=== PATIENT | female | born 1980 | race Caucasian/White ===

== ENCOUNTER 2016-11-02 10:29 | Emergency (ER) | payer BC ==
--- NOTE | 2016-11-02 12:54 | RAD ---
HISTORY: Trauma, injury to right knee COMPARISONS: July 21, 2013 VIEWS: 4, Frontal, lateral, axial, and oblique views of the right knee FINDINGS: BONE DENSITY: Normal. BONES: There is no displaced fracture. JOINTS: There is no arthropathy. There is no appreciable lipohemarthrosis. ALIGNMENT: There is no dislocation. SOFT TISSUES: Unremarkable. OTHER FINDINGS: None. IMPRESSION: NO ACUTE OSSEOUS INJURY. IF SYMPTOMS PERSIST, RECOMMEND REPEAT IMAGING.
[2016-11-02 12:58] VITALS: BP 130/87
--- NOTE | 2016-11-02 14:31 | UC ---
Knee Pain HPI - HPI Summary HPI Summary: 9:45 AM CROSSING PARKING LOT AND SLIPPED, FELL ONTO RIGHT KNEE. HISTORY OF ARTHRITIS IN LEFT KNEE. KNEE FEELS UNSTABLE - History of Current Complaint Chief Complaint: UCLowerExtremity Stated Complaint: RIGHT KNEE PAIN Time Seen by Provider: 11/02/16 12:10 Hx Obtained From: Patient Hx Last Menstrual Period: s/p uterine ablation Onset/Duration: Sudden Onset, Lasting Hours, Still Present Severity Currently: Moderate Pain Intensity: 6 Pain Scale Used: 0-10 Numeric Character: Dull, Aching Aggravating Factor(s): Weight Bearing, Prolonged Standing Alleviating Factor(s): Position Able to Bear Weight: Yes - WITH PAIN - Allergies/Home Medications Allergies/Adverse Reactions: Allergies Allergy/AdvReac Type Severity Reaction Status Date / Time No Known Allergies Allergy Verified 07/21/15 15:49 Home Medications: Home Medications Levothyroxine TAB* [Synthroid TAB*] 150 mcg PO DAILY 11/02/16 [History Confirmed 11/02/16] PMH/Surg Hx/FS Hx/Imm Hx Previously Healthy: Yes Endocrine History Of: Reports: Diabetes, Thyroid Disease Respiratory History Of: Reports: Asthma - Surgical History Surgical History: Yes Surgery Procedure, Year, and Place: 4 D&C's. Uterine Ablation. Lap Band x 2 and Removal. Tubal Ligation - Social History Occupation: Employed Full-time Lives: With Family Alcohol Use: Occasionally Substance Use Type: None Smoking Status (MU): Never Smoked Tobacco - Immunization History Most Recent Influenza Vaccination: Not the 2015/2016 Season Review of Systems Constitutional: Negative Skin: Negative Eyes: Negative ENT: Negative Respiratory: Negative Cardiovascular: Negative Gastrointestinal: Negative Genitourinary: Negative Motor: Negative Musculoskeletal: Arthralgia - RIGHT KNEE, Myalgia - RIGHT KNEE Neurological: Negative Psychological: Negative All Other Systems Reviewed And Are Negative: Yes Physical Exam Triage Information Reviewed: Yes Appearance: Well-Appearing, No Pain Distress, Well-Nourished Vital Signs: Initial Vital Signs Temp 98.1 F 11/02/16 12:22 Pulse 96 11/02/16 12:22 Resp 16 11/02/16 12:22 BP 130/87 11/02/16 12:22 Pulse Ox 99 11/02/16 12:22 Vital Signs Reviewed: Yes Eye Exam: Normal Eyes: Positive: Conjunctiva Clear ENT Exam: Normal ENT: Positive: Normal ENT inspection, Hearing grossly normal, TMs normal Dental Exam: Normal Neck exam: Normal Respiratory Exam: Normal Respiratory: Positive: Chest non-tender, Lungs clear, Normal breath sounds, No respiratory distress Cardiovascular Exam: Normal Cardiovascular: Positive: RRR, No Murmur, Pulses Normal Abdominal Exam: Normal Abdomen Description: Positive: Nontender, No Organomegaly Musculoskeletal: Positive: Strength Intact, ROM Intact, No Edema, Other: - LATERAL PAIN WITH [facility] MURRAYS TEST; LATERAL PAIN, WITH ANTERIOR DRAWER TEST Knee Pain Course/Dx - Differential Dx/Diagnosis Differential Diagnosis/HQI/PQRI: Fracture (Closed), Sprain, Strain Provider Diagnoses: RIGHT KNEE SPRAIN Discharge - Discharge Plan Condition: Stable Disposition: HOME Patient Education Materials: Knee Sprain (ED) Forms: *Work Release Referrals: Kaden Joya MD [Medical Doctor] - Yamilka Delgado NP [Primary Care Provider] - Meeta Marquez MD [Medical Doctor] -
== END 2016-11-02 13:35 | disposition home or self-care (01) ==
LOC: UCCORT 10:29
DX: S83.91XA Sprain of unspecified site of right knee, initial encounter (principal); W01.0XXA Fall on same level from slipping, tripping and stumbling without subsequent striking against object, initial encounter; Y93.01 Activity, walking, marching and hiking; Y92.481 Parking lot as the place of occurrence of the external cause
CPT/HCPCS: 99212; G0463

== ENCOUNTER 2017-03-09 07:52 | Emergency (ER) | payer BC ==
--- NOTE | 2017-03-09 08:14 | UC ---
UC General HPI - HPI Summary HPI Summary: complaint of resh rash on her left check started as a dry spot approx 1 wek ago then it started to get itchy and bumpy and slightly raised slightly painful today use zovarax on skin without any relief cpap mask touches the edge of rash and irritates her face denies fever but feels fatigued today - History of Current Complaint Chief Complaint: UCSkin Stated Complaint: LEFT SIDE FACIAL SKIN COMPLAINT Time Seen by Provider: 03/09/17 08:08 Hx Obtained From: Patient - Allergy/Home Medications Allergies/Adverse Reactions: Allergies Allergy/AdvReac Type Severity Reaction Status Date / Time No Known Allergies Allergy Verified 03/09/17 08:01 PMH/Surg Hx/FS Hx/Imm Hx Previously Healthy: Yes - sleep apnea, PCOS, celiac disease Endocrine History: Diabetes, Hypothyroidism Cardiovascular History: Hypertension - Surgical History Surgical History: Yes Surgery Procedure, Year, and Place: 4 D&C's. Uterine Ablation. Lap Band x 2 and Removal. Tubal Ligation - Family History Known Family History: Negative: Cardiac Disease, Hypertension, Diabetes - Social History Occupation: Employed Full-time Lives: With Family Alcohol Use: Occasionally Substance Use Type: None Smoking Status (MU): Never Smoked Tobacco - Immunization History Most Recent Influenza Vaccination: Not the Season Review of Systems Constitutional: Fatigue Skin: Rash Eyes: Negative ENT: Negative Respiratory: Negative Cardiovascular: Negative Gastrointestinal: Negative Genitourinary: Negative Motor: Negative Neurovascular: Negative Musculoskeletal: Negative Neurological: Negative Psychological: Negative All Other Systems Reviewed And Are Negative: Yes Physical Exam Triage Information Reviewed: Yes Appearance: No Pain Distress, Well-Nourished, Obese Vital Signs: Initial Vital Signs Temp 97.6 F 03/09/17 08:02 Pulse 62 03/09/17 08:02 Resp 16 03/09/17 08:02 BP 118/43 03/09/17 08:02 Pulse Ox 98 03/09/17 08:02 Vital Signs Reviewed: Yes Eyes: Positive: Conjunctiva Clear ENT: Positive: Pharynx normal, TMs normal Neck: Positive: No Lymphadenopathy Respiratory: Positive: Lungs clear, Normal breath sounds, No respiratory distress Cardiovascular: Positive: RRR, No Murmur, Pulses Normal Abdomen Description: Positive: Nontender, Soft Bowel Sounds: Positive: Present Musculoskeletal: Positive: No Edema Neurological: Positive: Alert Psychological Exam: Normal Skin: Positive: rashes - left side of face 3x3cm aera of erythematous patch with raised edge and clear center Course/Dx - Differential Dx - Multi-Symptom Differential Diagnoses: Other - tinea, cellulitis, shingles Provider Diagnoses: tinea Discharge - Discharge Plan Condition: Stable Disposition: HOME Prescriptions: Clotrimazole 1% CREAM* [Clotrimazole 1%*] 1 applic TOPICAL BID #1 tube Hydrocortisone 1% CREAM* [Hytone Cream 1%*] 1 applic TOPICAL BID #1 tube Patient Education Materials: Tinea Corporis (ED) Forms: *Work Release Referrals: Yamilka Delgado NP [Primary Care Provider] - Anders Crowley MD [Medical Doctor] - Additional Instructions: Please start clotrimazole and hydrocortisone cream as directed Increase fluids and rest Take acetaminophen or ibuprofen for fever or pain Please review your discharge instructions. If your symptoms do not improve please call your primary care provider or return to urgent care.
[2017-03-09 08:45] VITALS: BP 118/43
== END 2017-03-09 08:38 | disposition home or self-care (01) ==
LOC: UCCORT 07:52
DX: B35.9 Dermatophytosis, unspecified (principal); E11.9 Type 2 diabetes mellitus without complications; I10 Essential (primary) hypertension; E03.9 Hypothyroidism, unspecified; G47.30 Sleep apnea, unspecified; E28.2 Polycystic ovarian syndrome; K90.0 Celiac disease
CPT/HCPCS: 99212; G0463

== ENCOUNTER 2017-09-06 10:43 | Emergency (ER) | payer BC ==
[2017-09-06 12:49] VITALS: BP 125/78
--- NOTE | 2017-09-06 13:03 | UC ---
Throat Pain/Nasal Jose HPI - HPI Summary HPI Summary: 37 year old female presents with left ear pain and cough. - History of Current Complaint Chief Complaint: UCRespiratory Stated Complaint: EAR ACHE/ST/COUGH Time Seen by Provider: 09/06/17 12:58 Hx Obtained From: Patient Hx Last Menstrual Period: n/a, uterine ablation Onset/Duration: Gradual Onset Severity: Moderate Pain Scale Used: 0-10 Numeric - 5 - Allergies/Home Medications Allergies/Adverse Reactions: Allergies Allergy/AdvReac Type Severity Reaction Status Date / Time No Known Allergies Allergy Verified 09/06/17 12:49 PMH/Surg Hx/FS Hx/Imm Hx Previously Healthy: Yes - Surgical History Surgical History: Yes Surgery Procedure, Year, and Place: 4 D&C's. Uterine Ablation. Lap Band x 2 and Removal. Tubal Ligation - Family History Known Family History: Negative: Cardiac Disease, Hypertension, Diabetes - Social History Alcohol Use: Rare Substance Use Type: None Smoking Status (MU): Never Smoked Tobacco - Immunization History Most Recent Influenza Vaccination: Not the Season Review of Systems Constitutional: Negative Skin: Negative Eyes: Negative ENT: Sore Throat, Ear Ache, Nasal Discharge, Sinus Congestion, Sinus Pain/ Tenderness Respiratory: Negative Cardiovascular: Negative Gastrointestinal: Negative Genitourinary: Negative Motor: Negative Neurovascular: Negative Musculoskeletal: Negative Neurological: Negative Psychological: Negative All Other Systems Reviewed And Are Negative: Yes Physical Exam Triage Information Reviewed: Yes Vital Signs: Initial Vital Signs Temp 36.9 C 09/06/17 12:42 Pulse 71 09/06/17 12:42 Resp 16 09/06/17 12:42 BP 125/78 09/06/17 12:42 Pulse Ox 100 09/06/17 12:42 Vital Signs Reviewed: Yes Eye Exam: Normal ENT Exam: Normal Dental Exam: Normal Neck exam: Normal Neck: Positive: 1 Respiratory Exam: Normal Cardiovascular Exam: Normal Abdominal Exam: Normal Musculoskeletal Exam: Normal Neurological Exam: Normal Psychological Exam: Normal Skin Exam: Normal Throat Pain/Nasal Course/Dx - Differential Dx/Diagnosis Provider Diagnoses: left otitis externa. sore throat. post nasal drip Discharge - Discharge Plan Condition: Stable Disposition: HOME Prescriptions: Azithromyxin RAMANA (NF) [Z-Ramana (Zithromax) 250 mg tabs #6] 2 tab PO .TODAY, THEN 1 DAILY #6 tab Fluconazole [Fluconazole 150 mg tab] 150 mg PO ONCE #1 tab LoraTADine TAB(NF) [Claritin 10 MG TAB(NF)] 10 mg PO DAILY #30 tab Magic M W2 Sy/Maal/Nyst/Lido* 5 ml SWISH SPIT QID PRN #120 ml PRN Reason: Pain Neomyc/Polym/HC 1% OTIC SUSP* [Cortisporin Otic Susp 1%*] 4 drop BOTH EARS QID # 1 btl Patient Education Materials: Allergic Rhinitis (ED), Earache (ED) Referrals: Yamilka Delgado NP [Primary Care Provider] -
== END 2017-09-06 13:51 | disposition home or self-care (01) ==
LOC: UCCORT 10:43
DX: H60.92 Unspecified otitis externa, left ear (principal); R09.82 Postnasal drip; J02.9 Acute pharyngitis, unspecified
CPT/HCPCS: 87651; 99212; G0463

== ENCOUNTER 2018-04-07 07:10 | Emergency (ER) | payer BC ==
[2018-04-07 07:23] VITALS: BP 108/63
[2018-04-07] MEDS ORDERED: cefTRIAXone VIAL(*) 1,000 MG VIAL IM ONE (07:35)
[2018-04-07] MEDS ORDERED: Lidocaine 1% MPF* 2 ML VIAL INJ ONE (07:37)
--- NOTE | 2018-04-07 07:43 | UC ---
Complaint Female HPI - HPI Summary HPI Summary: Urinary odor for about a week and then she noticed that she started to have right sided flank pain. No fever or chills or rigors. She has well controlled DMII. She denies prior kidney stones or urologic disease. No vaginal complaints. - History Of Current Complaint Chief Complaint: UCGU Stated Complaint: URINARY Time Seen by Provider: 04/07/18 07:26 Hx Obtained From: Patient Hx Last Menstrual Period: n/a, uterine ablation Onset/Duration: Gradual Onset, Lasting Days Timing: Constant Severity Initially: Mild Severity Currently: Moderate Pain Intensity: 6 Character: Dull Aggravating Factor(s): Nothing Alleviating Factor(s): Nothing Associated Signs And Symptoms: Positive: Back Pain. Negative: Fever, Vaginal Bleeding/Discharge, Vaginal Discharge, Nausea, Vomiting(# Of Episodes =), Genital Swelling, Genital Blisters - Allergies/Home Medications Allergies/Adverse Reactions: Allergies Allergy/AdvReac Type Severity Reaction Status Date / Time No Known Allergies Allergy Verified 04/07/18 07:20 Home Medications: Home Medications Liraglutide [Saxenda] 2.4 mg SC DAILY 04/07/18 [History Confirmed 04/07/18] PMH/Surg Hx/FS Hx/Imm Hx Previously Healthy: No - Surgical History Surgical History: Yes Surgery Procedure, Year, and Place: 4 D&C's. Uterine Ablation. Lap Band x 2 and Removal. Tubal Ligation. choly. gastric sleeve - Family History Known Family History: Negative: Cardiac Disease, Hypertension, Diabetes - Social History Lives: With Family Alcohol Use: Occasionally Substance Use Type: None Smoking Status (MU): Never Smoked Tobacco - Immunization History Most Recent Influenza Vaccination: Not the Season Review of Systems Gastrointestinal: Other - flank pain. All Other Systems Reviewed And Are Negative: Yes Physical Exam Triage Information Reviewed: Yes Appearance: Well-Appearing, No Pain Distress, Obese Vital Signs: Initial Vital Signs Temp 97.5 F 04/07/18 07:17 Pulse 90 04/07/18 07:17 Resp 17 04/07/18 07:17 BP 108/63 04/07/18 07:17 Pulse Ox 99 04/07/18 07:17 Vital Signs Reviewed: Yes Eyes: Positive: Conjunctiva Clear ENT: Positive: Normal ENT inspection Neck: Positive: Supple, Nontender, No Lymphadenopathy Respiratory: Positive: Lungs clear, Normal breath sounds, No respiratory distress, No accessory muscle use. Negative: Respiratory distress, Decreased breath sounds, Accessory muscle use, Crackles, Rhonchi, Stridor Cardiovascular: Positive: No Murmur, Pulses Normal, Brisk Capillary Refill Abdomen Description: Positive: No Organomegaly, Soft, CVA Tenderness (R). Negative: Distended, Guarding Musculoskeletal: Positive: Strength Intact, ROM Intact, No Edema Neurological: Positive: Alert, Muscle Tone Normal. Negative: Fatigued Psychological: Positive: Age Appropriate Behavior Skin: Negative: rashes Complaint Female Dx - Course Course Of Treatment: LIkely right pyelonephritis. No systemic symptoms or signs. She is reliable and does agree to go to ED for any worsening symptoms or fever or chills. Kidney stone not suspected as there is no severe pain, sudden onset or vomiting. - Differential Dx/Diagnosis Provider Diagnoses: pyelonephritis. Discharge - Sign-Out/Discharge Documenting (check all that apply): Patient Departure - Discharge Plan Condition: Good Disposition: HOME Prescriptions: Cephalexin CAP* [Keflex CAP*] 500 mg PO TID #30 cap Fluconazole 100 MG TAB* [Diflucan 100 MG TAB*] 100 mg PO DAILY #3 tab Patient Education Materials: Kidney Infection (ED) Referrals: Yamilka Delgado NP [Primary Care Provider] - - Billing Disposition and Condition Condition: GOOD Disposition: Home
== END 2018-04-07 08:10 | disposition home or self-care (01) ==
LOC: UCCORT 07:10
DX: N12 Tubulo-interstitial nephritis, not specified as acute or chronic (principal); E11.9 Type 2 diabetes mellitus without complications; Z79.84 Long term (current) use of oral hypoglycemic drugs; Z98.84 Bariatric surgery status
CPT/HCPCS: 81003; 99212; G0463; J0696

== ENCOUNTER 2018-07-19 18:16 | Emergency (ER) | payer BC ==
--- NOTE | 2018-07-19 19:18 | UC ---
Ear Complaint HPI - HPI Summary HPI Summary: 38 y/o female presents to the urgent care c/o left ear pain and plugged w/ ear pressure since yesterday. this morning he woke up w/ more pressure. Pain is 5/ 10. Seh took Tylenol PO to alleviate symptoms around 1300pm. She has had midl nasal congestion w/ clear discharge for the past 3 days. Pt denies fever, dizziness, tinnitus, GOFF, SOB, chest pain, abdominal pain, N/V/D. Pt w/ Hx of serous otitis media and DR Woody Rx Allergy medication w/o any improvement. - History of Current Complaint Stated Complaint: LEFT EAR CONCERN Time Seen by Provider: 07/19/18 19:16 Hx Obtained From: Patient Hx Last Menstrual Period: n/a, uterine ablation ?: No Onset/Duration: Gradual Onset, Lasting Days - 3 days, Still Present, Worse Since - today Severity Initially: Mild Severity Currently: Moderate Pain Intensity: 3 Pain Scale Used: 0-10 Numeric Aggravating Factors: Other - touch Alleviating Factors: OTC Meds Associated Signs/Symptoms: Positive: Hearing Loss - Allergies/Home Medications Allergies/Adverse Reactions: Allergies Allergy/AdvReac Type Severity Reaction Status Date / Time No Known Allergies Allergy Verified 07/19/18 19:15 PMH/Surg Hx/FS Hx/Imm Hx Previously Healthy: Yes Endocrine History: Diabetes, Hypothyroidism - Surgical History Surgical History: Yes Surgery Procedure, Year, and Place: 4 D&C's. Uterine Ablation. Lap Band x 2 and Removal. Tubal Ligation. choly. gastric sleeve - Family History Known Family History: Positive: Diabetes Negative: Cardiac Disease, Hypertension - Social History Occupation: Employed Full-time Lives: With Family Alcohol Use: Occasionally Substance Use Type: None Smoking Status (MU): Never Smoked Tobacco - Immunization History Most Recent Influenza Vaccination: Not the 2016/2017 Season Review of Systems Constitutional: Negative Skin: Negative Eyes: Negative ENT: Ear Ache - left ear pain, pressure and plugged, Nasal Discharge - clear, Sinus Congestion - mild Respiratory: Negative Cardiovascular: Negative Gastrointestinal: Negative Genitourinary: Negative Motor: Negative Neurovascular: Negative Musculoskeletal: Negative Neurological: Negative Psychological: Negative Is Patient Immunocompromised?: No All Other Systems Reviewed And Are Negative: Yes Physical Exam - Summary Physical Exam Summary: Vital signs: reviewed General: well developed, well nourished obese female sitting in the examining table w/o any apparent distress Skin: [place], warm and dry, no evidence of atopic dermatitis, psoriasis, seborrhea. HEENT: -Head: atraumatic, non tender; no scalp dermatitis. -Eyes: sclera and conjunctiva clear, PERRLA, EOMI -Ears: no pre- or postauricular lymphadenopathy or erythema; LF external ear canal with erythema and yellowish purulent discharge, pinna tenderness on palpation, Rt TM injected w/ erythema, RT external ear canal clear and RT TM WNL. No fluid level, vesicles, or bullae. No perforation. -Nose/Face: erythematous and edematous nasal mucosa with clear rhinorrhea, no frontal or maxillary sinus tender to palpation. -Mouth/Throat: Mucous membrane moist, posterior pharynx clear, no erythema or exudates. Neck: supple, FROM, nontender, no lymphadenopathy, no meningismus. Chest: Clear to auscultation, normal breath sounds Abd: soft, Bowel sounds active, Nontender. Back: no spinal or CVAT Neuro: A&O x4, GCS 15, no focal neuro deficits, normal behavior for age. Triage Information Reviewed: Yes Ear Complaint Course/Dx - Course Course Of Treatment: 38 y/o female presents to the urgent care c/o left ear pain and plugged w/ ear pressure since yesterday. this morning he woke up w/ more pressure. Pain is 5/10. Seh took Tylenol PO to alleviate symptoms around 1300pm. She has had midl nasal congestion w/ clear discharge for the past 3 days. Pt denies fever, dizziness, tinnitus, GOFF, SOB, chest pain, abdominal pain , N/V/D. Pt w/ Hx of serous otitis media and DR Woody Rx Allergy medication w/o any improvement. Hx obtained. Pt w/ left otitis media and externa on examination. Pt Rx Amoxicillin PO and Ciprodex otic drops. Pt advised to take Ibuprofen PO to alleviate pain. Advised to f/y w/ ENT Dr Rodney or DR Woody if symptoms do not improve or worsen since she has been w/ recurrent otitis in the past year for further magement. Pt understood and agreed with D/C instructions. - Differential Dx/Diagnosis Differential Diagnosis/HQI/PQRI: Cerumen Impaction, Otitis Externa, Otitis Media , Perforated TM, URI Provider Diagnoses: 1- Left otitis Media and externa Discharge - Sign-Out/Discharge Documenting (check all that apply): Patient Departure - D/C home All imaging exams completed and their final reports reviewed: No Studies - Discharge Plan Condition: Stable Disposition: HOME Prescriptions: Amoxicillin PO (*) [Amoxicillin 875 MG (*)] 875 mg PO BID #20 tab Ciproflox/Dexameth OTIC.SUSP* [Ciprodex OTIC.SUSP*] 1 drop .SEE ORDER BID #1 btl Fluconazole 150 MG (NF) [Diflucan 150 mg (NF)] 150 mg PO ONCE #1 tab Patient Education Materials: Ear Infection (ED) Referrals: Yamilka Delgado NP [Primary Care Provider] - 3 Days Rik Rodney MD [Medical Doctor] - 3 Days Additional Instructions: 1- Please take the full course of the antibiotic to avoid resistance. Please apply Ciprodex otic drops as directed to alleviate ear infection 2-Please take ibuprofen PO q6-8hrs prn as instructed after meals to alleviate pain and swelling. 3-If symptoms do not improve or worsen please f/u w/ ENT Dr Rodney for further evaluation and treatment. - Billing Disposition and Condition Condition: STABLE Disposition: Home - Attestation Statements Provider Attestation: Per institutional requirements, I have reviewed the chart, however, I was not consulted specifically or made aware of this patient by the midlevel provider. I did not personally evaluate, interact with , or disposition this patient.
[2018-07-19 19:22] VITALS: BP 131/61
== END 2018-07-19 20:06 | disposition home or self-care (01) ==
LOC: UCCORT 18:16
DX: H66.92 Otitis media, unspecified, left ear (principal); H60.92 Unspecified otitis externa, left ear; E11.9 Type 2 diabetes mellitus without complications
CPT/HCPCS: 99212; G0463

== ENCOUNTER 2018-09-09 21:23 | Emergency (ER) | payer BC ==
[2018-09-09 21:40] VITALS: BP 137/84
--- NOTE | 2018-09-09 21:54 | UC ---
Skin Complaint HPI - HPI Summary HPI Summary: Pt presents with c/o sudden onset of "itchy" rash generalized trunk, lower extremities and upper extremities. Pt took 50 mg PO benadryl and states rash improved ` 1 hour after. - History of Current Complaint Chief Complaint: UCSkin Time Seen by Provider: 09/09/18 21:43 Stated Complaint: SKIN CONCERN (POSSIBLE REACTION) Hx Obtained From: Patient Hx Last Menstrual Period: ABLATION 2011 ?: No Onset/Duration: Sudden Onset, Lasting Days, Still Present Skin Exposure Onset/Duration: Hours Ago Timing: Constant Onset Severity: Mild Current Severity: Mild Pain Intensity: 0 Location: Generalized Character: Pruritus, Redness, Raised Alleviating Factor(s): Antihistamines Associated Signs & Symptoms: Positive: Rash Related History: Recent change in medication - 1 month ago began plaquenil - Allergy/Home Medications Allergies/Adverse Reactions: Allergies Allergy/AdvReac Type Severity Reaction Status Date / Time No Known Allergies Allergy Verified 09/09/18 21:32 PMH/Surg Hx/FS Hx/Imm Hx Previously Healthy: Yes - Surgical History Surgical History: Yes Surgery Procedure, Year, and Place: 4 D&C's. Uterine Ablation. Lap Band x 2 and Removal. Tubal Ligation. choly. gastric sleeve - Family History Known Family History: Positive: Diabetes Negative: Cardiac Disease, Hypertension - Social History Occupation: Employed Full-time Lives: With Family Alcohol Use: None Substance Use Type: None Smoking Status (MU): Never Smoked Tobacco Have You Smoked in the Last Year: No - Immunization History Most Recent Influenza Vaccination: Not the 2016/2016 Season Most Recent Tetanus Shot: UTD Review of Systems All Other Systems Reviewed And Are Negative: Yes Constitutional: Positive: Negative Skin: Positive: Rash Eyes: Positive: Negative ENT: Positive: Negative Respiratory: Positive: Negative Cardiovascular: Positive: Negative Gastrointestinal: Positive: Negative Genitourinary: Positive: Negative Motor: Positive: Negative Neurovascular: Positive: Negative Musculoskeletal: Positive: Negative Neurological: Positive: Negative Psychological: Positive: Negative Is Patient Immunocompromised?: No Physical Exam Triage Information Reviewed: Yes Appearance: Well-Appearing Vital Signs: Initial Vital Signs Temp 97.3 F 09/09/18 21:32 Pulse 91 09/09/18 21:32 Resp 16 09/09/18 21:32 BP 137/84 09/09/18 21:32 Pulse Ox 100 09/09/18 21:32 Vital Signs Reviewed: Yes Eye Exam: Normal ENT Exam: Normal Dental Exam: Normal Neck exam: Normal Respiratory Exam: Normal Cardiovascular Exam: Normal Musculoskeletal Exam: Normal Neurological Exam: Normal Psychological Exam: Normal Skin Exam: Other - diffuse, pin prick, mild erythematous rasied rash generalized , upper and lower extermities and trunk. Skin: Positive: Rashes Course/Dx - Differential Diagnoses - Skin Complaint Differential Diagnoses: Allergic Reaction, Contact Dermatitis - Diagnoses Provider Diagnosis: Allergic reaction, Rash and nonspecific skin eruption Discharge - Sign-Out/Discharge Documenting (check all that apply): Patient Departure All imaging exams completed and their final reports reviewed: No Studies - Discharge Plan Condition: Stable Disposition: HOME Patient Education Materials: Antihistamine (By mouth), General Allergic Reaction (ED) Referrals: Yamilka Delgado NP [Primary Care Provider] - As Soon As Possible Additional Instructions: PLEASE FOLLOW UP WITH YOUR PCP AND ROENTGENOLOGIST SOON POSSIBLE. - Billing Disposition and Condition Condition: STABLE Disposition: Home
== END 2018-09-09 22:01 | disposition home or self-care (01) ==
LOC: UCCORT 21:23
DX: T78.40XA Allergy, unspecified, initial encounter (principal); X58.XXXA Exposure to other specified factors, initial encounter; R21 Rash and other nonspecific skin eruption
CPT/HCPCS: 99211; G0463

== ENCOUNTER 2019-02-21 07:28 | Emergency (ER) | payer BC ==
[2019-02-21 07:42] VITALS: BP 108/45
--- NOTE | 2019-02-21 08:51 | UC ---
Complaint Female HPI - HPI Summary HPI Summary: 38 year old female with h/o DM presents with vaginal itching, burning, swollen labia since . Took a leftover diflucan thursday, no benefit by Thursday, did monistat one which increased symptoms, increased labia pain. no fever, chills. + loose stools, but baseline for patient. MIld lower abdominal pains. not sexually active, does not want STD testing. h/o yeast infections in past when on ABX. - History Of Current Complaint Chief Complaint: UCGU Stated Complaint: URINARY COMPLAINT Time Seen by Provider: 02/21/19 08:01 Hx Obtained From: Patient Hx Last Menstrual Period: ablation Onset/Duration: Sudden Onset, Lasting Days, Still Present Timing: Constant Severity Initially: Moderate Severity Currently: Moderate Pain Intensity: 6 Pain Scale Used: 0-10 Numeric Character: Burning, Tearing Aggravating Factor(s): Urination Alleviating Factor(s): Position Associated Signs And Symptoms: Negative: Fever, Back Pain, Nausea - Allergies/Home Medications Allergies/Adverse Reactions: Allergies Allergy/AdvReac Type Severity Reaction Status Date / Time hydroxychloroquine Allergy Hives Verified 02/21/19 07:42 Home Medications: Home Medications Levothyroxine Sodium [Tirosint] 175 mcg PO DAILY 02/21/19 [History Confirmed 07/02] PMH/Surg Hx/FS Hx/Imm Hx Previously Healthy: Yes - Surgical History Surgical History: Yes Surgery Procedure, Year, and Place: 4 D&C's. Uterine Ablation. Lap Band x 2 and Removal. Tubal Ligation. choly. gastric sleeve - Family History Known Family History: Positive: Diabetes Negative: Cardiac Disease, Hypertension - Social History Alcohol Use: None Substance Use Type: None Smoking Status (MU): Never Smoked Tobacco Have You Smoked in the Last Year: No - Immunization History Most Recent Influenza Vaccination: Not the 2016/2017 Season Most Recent Tetanus Shot: UTD Review of Systems All Other Systems Reviewed And Are Negative: Yes Constitutional: Negative: Fever Gastrointestinal: Positive: Abdominal Pain Genitourinary: Positive: Dysuria, Frequency, Vaginal/Penile Burning, Vaginal/ Penile Itching, Vaginal/Penile Discharge, Vaginal/Penile Tenderness. Negative: Vaginal/Penile Pain Is Patient Immunocompromised?: No Physical Exam Triage Information Reviewed: Yes Appearance: Well-Appearing, No Pain Distress, Well-Nourished Vital Signs: Initial Vital Signs Temp 97.8 F 02/21/19 07:36 Pulse 72 02/21/19 07:36 Resp 16 02/21/19 07:36 BP 108/45 02/21/19 07:36 Pulse Ox 98 02/21/19 07:36 Vital Signs Reviewed: Yes Eyes: Positive: Conjunctiva Clear Abdomen Description: Positive: Nontender, No Organomegaly. Negative: CVA Tenderness (R), CVA Tenderness (L) Pelvic Exam: Positive: No Cerv. Motion Tender, No Masses, Discharge - white, thick cottage cheese like discharge. Negative: Active Bleeding, Blood, Cervicitis, Lesions, Mass, Tender w/ Cervical Motion, Tender Adnexa, Tender Uterus Musculoskeletal Exam: Normal Neurological Exam: Normal Psychological Exam: Normal Skin: Positive: Other - external labia red, swollen, inflammed b/l, no lesions noted. TTP b/l Complaint Female Dx - Course Course Of Treatment: Yeast infection- - Cool Compresses to labia to help with pain, swelling - Motrin 600mg every 6-8 hours x 2 days to help with swelling, irritation - DIflucan x 2 doses 72 hours apart - Low dose steroid, hydrocortisone, to labia x 1-2 days to decrease swelling, pain - Differential Dx/Diagnosis Differential Diagnosis/HQI/PQRI: Ovarian Cyst, Ovarian Torsion, Ureteral Stone, Urinary Tract Infection Provider Diagnosis: Candidiasis Discharge - Sign-Out/Discharge Documenting (check all that apply): Patient Departure All imaging exams completed and their final reports reviewed: No Studies - Discharge Plan Condition: Good Disposition: HOME Prescriptions: Fluconazole 150 MG TAB* [Diflucan 150 MG TAB*] 150 mg PO DAILY #2 tablet Hydrocortisone 1% Oint(NF) [Hydrocortisone 1% Oint (NF)] 1 applic TOPICAL BID PRN #1 tube PRN Reason: redness, irritation Patient Education Materials: Yeast Infection (ED) Referrals: Ezekiel Urrutia MD [Primary Care Provider] - Additional Instructions: - Cool Compresses to labia to help with pain, swelling - Motrin 600mg every 6-8 hours x 2 days to help with swelling, irritation - DIflucan x 2 doses 72 hours apart - Low dose steroid, hydrocortisone, to labia x 1-2 days to decrease swelling, pain - Billing Disposition and Condition Condition: GOOD Disposition: Home
== END 2019-02-21 08:58 | disposition home or self-care (01) ==
LOC: UCCORT 07:28
DX: B37.49 Other urogenital candidiasis (principal)
CPT/HCPCS: 81003; 87480; 87510; 99212; G0463

== ENCOUNTER 2019-03-24 10:24 | Emergency (ER) | payer BC ==
[2019-03-24 10:57] VITALS: BP 128/54
[2019-03-24] MEDS ORDERED: Albuterol 2.5 MG/3 ML NEB.SOL* (0.083%) INH ONE (11:33)
--- NOTE | 2019-03-24 11:34 | UC ---
Respiratory Complaint HPI - HPI Summary HPI Summary: 38-year-old woman comes in with a chief complaint of upper respiratory tract infection symptoms about 10 days. She's had cough chest congestion. She was started on prednisone and albuterol and has not seen much improvement. Continue to feel short of breath with chest congestion. She did have a fever several days ago that she measured. Has not measured any fever recently. She describes some burning chest pain. Throat is so she feels from the coughing. - History of Current Complaint Chief Complaint: UCRespiratory Stated Complaint: RECHECK-CHEST CONGESTION,COUGH Time Seen by Provider: 03/24/19 11:25 Hx Last Menstrual Period: s/p ablation 2011 Pain Intensity: 4 - Allergies/Home Medications Allergies/Adverse Reactions: Allergies Allergy/AdvReac Type Severity Reaction Status Date / Time hydroxychloroquine Allergy Hives Verified 03/19/19 22:03 Home Medications: Home Medications Albuterol HFA INHALER* [Ventolin HFA Inhaler*] 1 - 2 puff INH Q4H PRN 03/24/19 [ History Confirmed 03/24/19] PMH/Surg Hx/FS Hx/Imm Hx Previously Healthy: Yes - Surgical History Surgical History: Yes Surgery Procedure, Year, and Place: 4 D&C's. Uterine Ablation. Lap Band x 2 and Removal. Tubal Ligation. choly. gastric sleeve - Family History Known Family History: Positive: Diabetes Negative: Cardiac Disease, Hypertension - Social History Alcohol Use: None Substance Use Type: None Smoking Status (MU): Never Smoked Tobacco Have You Smoked in the Last Year: No - Immunization History Most Recent Influenza Vaccination: Not the 2016/2016 Season Most Recent Tetanus Shot: UTD Review of Systems All Other Systems Reviewed And Are Negative: Yes Constitutional: Positive: Fever Skin: Positive: Negative ENT: Positive: Sore Throat Respiratory: Positive: Shortness Of Breath, Cough, Other - see hpi Cardiovascular: Positive: Chest Pain - see hpi Gastrointestinal: Positive: Negative Motor: Positive: Negative Neurovascular: Positive: Negative Musculoskeletal: Positive: Negative Neurological: Positive: Negative Psychological: Positive: Negative Is Patient Immunocompromised?: No Physical Exam Triage Information Reviewed: Yes Appearance: No Pain Distress, Well-Nourished, Ill-Appearing - mild Vital Signs: Initial Vital Signs Temp 98.8 F 03/24/19 10:52 Pulse 70 03/24/19 10:52 Resp 20 03/24/19 10:52 BP 128/54 03/24/19 10:52 Pulse Ox 98 03/24/19 10:52 Vital Signs Reviewed: Yes Eye Exam: Normal Eyes: Positive: Conjunctiva Clear ENT: Positive: Pharyngeal erythema, TMs normal Neck: Positive: Supple Respiratory: Positive: Lungs clear, Normal breath sounds, No respiratory distress Cardiovascular: Positive: RRR Musculoskeletal Exam: Normal Neurological Exam: Normal Neurological: Positive: Alert, Muscle Tone Normal Psychological Exam: Normal Psychological: Positive: Age Appropriate Behavior Skin Exam: Normal Respiratory Course/Dx - Course Course Of Treatment: Patient Name: NAS WATTS Medical Record#: [id number] Ordering Physician: Wallace Stallings MD Acct.#: [id number] : 1980 Age: 38 Sex: F Location: [facility]RG[facility] Exam Date: 03/24/19 1130 ADM Status: REG ER Order Information: CHEST PA LAT 2 VWS Accession Number: [id number] CPT: 42884 HISTORY: sob,cough COMPARISONS: None relevant available at the time of dictation. VIEWS: 4: Frontal dual-energy and lateral views of the chest. FINDINGS: CARDIOMEDIASTINAL SILHOUETTE: The cardiomediastinal silhouette is normal. ENID: The enid are normal. PLEURA: The costophrenic angles are sharp. No pleural abnormalities are noted. LUNG PARENCHYMA: The lungs are clear. ABDOMEN: The upper abdomen is clear. There is no subphrenic gas. BONES AND SOFT TISSUES: Mild degenerative changes are noted. OTHER: None. IMPRESSION: NO ACTIVE CARDIOPULMONARY DISEASE. <Electronically signed by Fabricio Malone MD in [place]> 03/24/19 1153 I discussed the x-ray with the patient. No pneumonia seen. Symptoms been going on for 10 days and not improving we'll start Rafiq azithromycin. Patient will continue the albuterol and the prednisone. Patient is to follow-up with primary care doctor she's to seek reevaluation in the emergency room or here if not improved or worse. - Differential Dx/Diagnosis Provider Diagnosis: Bronchitis with bronchospasm Discharge - Sign-Out/Discharge Documenting (check all that apply): Patient Departure All imaging exams completed and their final reports reviewed: Yes - Discharge Plan Condition: Stable Disposition: HOME Prescriptions: Azithromyxin RAMANA (NF) [Z-Ramana (Zithromax) 250 mg tabs #6] 2 tab PO .TODAY, THEN 1 DAILY #6 tab Fluconazole 150 MG TAB* [Diflucan 150 MG TAB*] 150 mg PO ONCE #2 tablet Patient Education Materials: Acute Bronchitis (ED), Bronchospasm (ED) Referrals: Ezekiel Urrutia MD [Primary Care Provider] - Additional Instructions: FOLLOW UP WITH YOUR DOCTOR IF NOT COMPLETELY IMPROVED. GET REEVALUATED SOONER IF WORSE OR ANY QUESTIONS OR CONCERNS. - Billing Disposition and Condition Condition: STABLE Disposition: Home
== END 2019-03-24 12:16 | disposition home or self-care (01) ==
LOC: UCCORT 10:24
DX: J40 Bronchitis, not specified as acute or chronic (principal)
CPT/HCPCS: 71046; 99212; G0463